=== PATIENT | female | born 1980 | race Caucasian/White ===

== ENCOUNTER 2024-07-13 10:14 | Observation (INO) | payer OTHER, SELFPAY ==
[2024-07-13] VITALS (18 sets, daily range): BP systolic 106–155; BP diastolic 41–103; PULSE 74–91; RESP 18; TEMP 36.6; BMI 30.4
--- NOTE | ~2024-07-13 | US_ITS ---
EXAMINATION: US OB limited DATE: 07/13/2024 14:26 INDICATION: Check placenta- Vaginal spotting . TECHNIQUE: Real-time ultrasound of the pelvis was performed. COMPARISON: None. FINDINGS: There is a single living fetus in breech presentation, longitudinal lie. The placenta is posterior/f undal, towards maternal right, well distant from the cervix. heart rate is 136 bpm. The amnioti c fluid index is 8.6 cm, which is low (5th to 95th percentile is 9.7 to 22.1 cm). IMPRESSION: Breech presentation. Oligohydramnios. Sonographically normal appearing placenta. Reviewed, dictated and finalized at location K.
--- NOTE | 2024-07-13 10:10 | PC.NURSE ---
Sandra in OB called and notified that patient is 7 weeks c/o lower abdominal cramping. Sandra asked patient be taken to OB. Patient transported to OB by processing technologistMadie multani.
--- NOTE | 2024-07-13 10:59 | OBADM ---
This patient, Rachael Devine, admitted to the OB room 116 for observation. Patient/family oriented to hospital policies and general routines including ID bracelet, bed and alarms, visiting hours, pain management, procedures, bathroom and other care routines, personal items, smoking policy, room service/diet, and visiting hours. Patient/Family are encouraged to report perceived risks to care and to ask questions if they do not understand what they are told or what they should do.
[2024-07-13] MEDS: LABETALOL HCL 100 MG TABLET 200 MG PO (12:16)
[2024-07-13 12:42] LABS: Add Urine Microscopic? YES; Appearance Urine Turbid (Clear); Bacteria Urine Rare /hpf; Bilirubin Urine Negative (Negative); Blood Urine 1+ (Negative); Color Urine Yellow (Yellow); Glucose Urine UA Negative (Negative); Ketones Urine Negative (Negative); Leukocyte Esterase Ur Negative LEU/UL (Negative); Nitrate Urine Negative (Negative); Non Pathogenic Casts 0-2; Protein Urine Negative (Negative); Specific Grav Ur 1.015 (1.001-1.035); Squamous Epithelial Cell Urine None Seen /hpf (Few); WBC Urine 0-5 /hpf (0-3); pH Urine 7.5 (5.0-9.0)
[2024-07-13 13:12] LABS: Influenza A QL RT-PCR Negative (Negative); Influenza B QL RT-PCR Negative (Negative); RSV RNA, RT-PCR Negative (Negative); SARS-CoV-2 RNA PCR Negative (Negative)
--- NOTE | 2024-08-06 19:54 | P.PNOB_ITS ---
OB - Triage/Final Diagnosis Visit Information Comments/Additional reasons for admission: I have assessed the risk for this patient, Rachael Devine, and determined that she would benefit from observation care. Evaluation Laboratory results: Laboratory Tests 07/13/24 12:05 Urine Color Yellow Urine Appearance Turbid H Urine pH 7.5 Ur Specific [place] 1.015 Urine Protein Negative Urine Glucose (UA) Negative Urine Ketones Negative Ur Blood (Man) 1+ H Urine Nitrate Negative Urine Bilirubin Negative Urine Urobilinogen 1.0 Leukocyte Esterase Rfl Negative Urine RBC 6-10 H Urine WBC 0-5 Ur Squamous Epith Cells None seen Urine Bacteria Rare Urine Casts 0-2 Influenza A (RT-PCR) Negative Influenza B (RT-PCR) Negative RSV (RT-PCR) Negative SARS-CoV-2 RNA (RT-PCR) Negative Final Diagnosis (1) Abdominal pain: Code(s): R10.9 - Unspecified abdominal pain Status: Acute
== END 2024-07-13 15:58 ==
PROVIDERS: Admitting Provider Obstetrics & Gynecology; Visit Provider Obstetrics & Gynecology
DX: O41.00X0 Oligohydramnios, unspecified trimester, not applicable or unspecified (principal); O26.899 Other specified pregnancy related conditions, unspecified trimester; R10.9 Unspecified abdominal pain; R11.0 Nausea; Z20.822 Contact with and (suspected) exposure to COVID-19
CPT/HCPCS: 76815; 81001; 87637; A9270; G0378; G0379

== ENCOUNTER 2024-09-05 18:43 | Emergency (ER) | payer OTHER, SELFPAY ==
[2024-09-05 18:55] VITALS: BP 150/102; PULSE 84; RESP 17; TEMP 36.2; O2SAT 100
[2024-09-05 18:58] VITALS: BP 163/102
--- NOTE | 2024-09-05 18:58 | ED.GENADULT ---
HPI - General Adult General Chief complaint: Skin/Abscess/Foreign Body Stated complaint: skin Rash Time Seen by Provider: 09/05/24 18:58 Source: patient, RN notes reviewed and old records reviewed Mode of arrival: ambulatory Limitations: no limitations History of Present Illness HPI narrative: 44-year-old female who is 33 weeks presents to the [facility] with itchy skin this been going on for several days. States that she has been taking hydroxyzine and Benadryl with no relief. Patient reports that she was evaluated last week at [facility] because she is high risk . States that nobody has called her back with her results. On initial assessment patient's blood pressure is elevated. Patient is scratching, hands are swollen, multiple scabbed over areas to the posterior legs. Patient reports 3 adult children. Denies any headaches, blurry vision, change in vision. Denies any chest pain or shortness of breath. Denies any abdominal pain. Onset (ago): day(s) Treatments prior to arrival: other (Hydroxyzine and Benadryl) Related Data Home Medications Medication Instructions Recorded Confirmed aspirin 81 mg chewable tablet 81 mg PO DAILY 09/05/24 09/05/24 buprenorphine 8 mg-naloxone 2 mg 1 film buccal DAILY 09/05/24 09/05/24 sublingual film famotidine 20 mg tablet 20 mg PO DAILY 09/05/24 09/05/24 hydroxyzine pamoate 25 mg capsule 25 mg PO DAILY 09/05/24 09/05/24 labetalol 200 mg tablet 200 mg PO DAILY 09/05/24 09/05/24 ondansetron 4 mg disintegrating 4 mg PO PRN PRN Nausea 09/05/24 09/05/24 tablet vitamin with calcium 1 tablet PO DAILY 09/05/24 09/05/24 no.72-iron 27 mg-folic acid 1 mg tablet (WesTab Plus) risperidone 1 mg tablet 1 mg PO DAILY 09/05/24 09/05/24 risperidone 2 mg tablet 2 mg PO DAILY 09/05/24 09/05/24 trazodone 50 mg tablet 50 mg PO HS 09/05/24 09/05/24 Allergies Allergy/AdvReac Type Severity Reaction Status Date / Time No Known Allergies Allergy Verified 09/05/24 18:53 Review of Systems Review of Systems: All systems reviewed & are unremarkable except as noted in HPI and below Constitutional: Constitutional: Reports no additional constitutional complaints Eyes: Eyes: Reports no additional eye complaints ENT: Reports system reviewed and no additional complaints, except as documented Cardiovascular: Cardiovascular: Reports no additional cardiovascular complaints, Denies chest pain and Denies dyspnea Respiratory: Respiratory: Reports no additional respiratory complaints, Denies chest congestion, Denies cough and Denies dyspnea Gastrointestinal: Gastrointestinal: Reports no additional gastrointestinal complaints, Denies abdominal pain, Denies nausea and Denies vomiting Musculoskeletal: Musculoskeletal: Reports no additional musculoskeletal complaints Integumentary/Breasts: Skin/Breast: Reports as per HPI and Reports pruritus Neurologic: Reports system reviewed and no additional complaints, except as documented Psychiatric: Psychiatric: Reports no additional psychiatric complaints PMFSH Comments At the time of my signature, I reviewed and agree with the nursing past medical, surgical, social, and family history. There is no relevant family history pertinent to the patient complaint. Exam Const: General: no acute distress, well developed, alert, anxious, uncomfortable and well nourished Nutritional Appearance: well nourished Orientation/consciousness: patient oriented x3 Limitations: no limitations HENMT: Head: normal to inspection Ears: hearing grossly normal bilaterally and external ears normal Face/Nose/Sinus: Normal external nose present, normal facial exam and face symmetric Face and sinus: normal facial exam and face symmetric Mouth: Yes Normal oral and palatal mucosa present and Yes lip normal Teeth and gingiva: poor dentition Eyes: General: appearance normal, both eyes and all related structures Alignment and Position: alignment normal Periorbital: giana
== END 2024-09-05 19:18 | disposition left against medical advice (07) ==
PROVIDERS: Emergency Provider Nurse Practitioner; PCP Nurse Practitioner Family
DX: O16.3 Unspecified maternal hypertension, third trimester (principal); O26.893 Other specified pregnancy related conditions, third trimester; L50.9 Urticaria, unspecified; Z79.82 Long term (current) use of aspirin; Z79.899 Other long term (current) drug therapy; Z3A.33 33 weeks gestation of pregnancy
CPT/HCPCS: 99211; G0463

== ENCOUNTER 2025-04-03 22:25 | Emergency (ER) | payer OTHER, SELFPAY ==
--- OUTSIDE RECORDS SUMMARY | 2025-04-03 22:27 | XMS_ITS | Patient Health Record ---
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 contact office with questions or concerns. 07/29/2024 Other Continue curren t medications. Continue services as scheduled. Labs completed recently. May self-administer medications or be administered own oral medications per [facility] protocols. Provided informed consent with understanding of side effects, adverse effects, risks and benefits as well as alternative treatments as previously discussed and with the above recommended medications & other aspects of the treatment program. Agrees to return sooner if symptoms worsen or suicidal or homicidal ideations occur. 09/24/2024 Other May self-administer medications or be administered own oral medications per [facility] protocols. Provided informed consent with understanding of side effects, adverse effects, risks and benefits as well as alternative treatments as previously discussed and with the above recommended medications & other aspects of the treatment program. Agrees to return sooner if symptoms worsen or suicidal or homicidal ideations occur. Plan Of Treatment Next Appt Details Provider Name:Abigail Colin ga, 04/06/2025 01:00:00 PM, [address], [place], [address], Insurance Providers Payer Name Payer Address Payer Phone Subscriber Number Group Number Insured Name Patient Relationship to Insured Coverage Start Date Coverage End Date [employer] [facility] Attn Claims Department [address] [place] [address] [id number] Rachael Devine Self - patient is the insured 4 [employer] Attn Claims Department [address] [place] [address] [id number] Rachael Devine Self - patient is the insured 4 Medical (General) History Medical History History ICD Code hypertension (resolved 10/09/2024) undefine d Surgical History Surgery Date(Month/Year) right knee detached ACL/MCL 2008 Hospitalization History Reason Date(Month/Year) kidney infection 2018 detox x2
--- OUTSIDE RECORDS SUMMARY | 2025-04-03 22:27 | XMS_ITS ---
Author Organization [facility] Address [address] [place] [address] Care Team Providers Care Research Compliance Specialist Name Role Phone Melanie Varma Primary Care Provider [phone] Abigail Castillo [phone] REASON FOR VISIT 4 week f/u Social History Sex Assigned At : Social History Observation Description Sex Assigned At Female Encounters Encounter Location Date Provider Diagnosis [address] [address] 03/25/2025 Abigail Castillo Plan Of Treatment Next Appt Details Provider Name:Abigail snyder, 04/06/2025 01:00:00 PM, [address] [place] [address], [place], [address], Progress Notes * Rachael DEVINEDOB: 0 (45 yo F)Acc No.[id number]:03/25/2025 UNLOCKED PROGRESS NOTE Patient: Rachael CHRISTOPHER Provider: Sabrina Castillo, DNP, TAG WRITER, PMHNP-BC :1980 A ge:45 Y S ex:Female Date:03/25/2025 Address:[address], [place], [id number] Pcp:Melanie Varma Subjective: * Chief Complaints: * 1 . 4 week f/u. * Medical History: Objective: * Vitals: Assessment: Plan: * Treatment: * * Electronic signature of Debbie Gunter , [id number] on 04/03/2025 at 10:27 PM CDT Sign off status: Pending * Provider: Sabrina Castillo DNP, LIU, PMHNP-BC Date: 0 03/25/2025 Generated for Printing/Faxing/eTransmitting on: 04/03/2025 10:27 PM CDT
--- OUTSIDE RECORDS SUMMARY | 2025-04-03 22:27 | XMS_ITS | Continuity of Care Document ---
Author Organization [facility] Address [address] [place] [address] Phone Care Team Providers Care Seasonal Sales Associate Name Role Phone Osei Diaz MD Unavailable Unavailable Advance Directives Directive Yes / No Effective Date File Name No Information Encounters Encounter Description Practice Location Reason(s) For Visit Diagnoses Date Provider Providers Copied on Encounter [facility], [address], [place], [place], [id number], tel:[phone] [facility] No Information Joe Franz. [address] [place] [address], [address], [place], [place], [id number], . tel:[phone] Referring Provider: Osei Diaz, [address] [place] [address], [address]. tel:[phone] Family History Family Member Type Diagnosis Age At Onset No Information Payers Payer name Insurance type Covered alliance party ID Authoriza tianupam(s) [facility] [id number] Social History Type Description Quantity Date Captured Comments Sex Female Smoking Status No Information Chief Complaint And Reason For Visit No Information Reason For Referral Reason For Referral No Information History Of Present Illness Encounter Date Complaint History Of Prese nt Illness No Information Functional Status Date Functional Assessmen t No Information Instructions Date Instruction Additional Infor mation No Information Assessments Type Assessment Date No Information Patient Care Teams Name Effective Dates (start - stop) Status Members No Information
--- OUTSIDE RECORDS SUMMARY | 2025-04-03 22:27 | XMS_ITS | Clinical Summary ---
Author Organization [facility] Address [address] [place] [address] Care Team Providers Care Digital Account Manager Name Role Phone Cris Pulido NP Primary Care Provider [phone] Allergies No known active allergies Medications ALPRAZolam (XANAX) 1 mg tablet Take 1 tablet (1 mg total) by mouth 3 (three) times a day as needed for anxiety. 30 tablet 2 01/03/2018 Active dicyclomine (BENTYL) 20 mg tabletIndicatio ns:Abdominal Pain with Cramps Take 1 tablet (20 mg total) by mouth every 6 (six) hours as needed (stomach cramps). 30 tablet 01/03/2018 Active ondansetron (ZOFRAN) 4 mg tablet Take 1 tablet (4 mg total) by mouth every 6 (six) hours as needed for nausea or vomiting (mild to moderate). 20 tablet 01/03/2018 Active penicillin v potassium (VEETID) 500 mg tablet Take 1 tablet (500 mg total) by mouth 4 (four) times a day 03/17/2024 Active Active Problems Problem Noted Date Diagnosed Date Syncope 03/20/2024 Assessment & Plan (03/20/2024 1:59 PM CDT): HPI: Condition is stable. Currently not on any hypertensive medications. Was previously on hydrochlorothiazide but states it made her have f ainting spells . Patient no longer on medication and still reports syncopal events. A&P: Discussed/ordered labs. We will continue to monitor. Will order echocardiogram to workup murmur. Will refer to Cardiology for workup for previous drug use/echo/murmur/syncopal episodes. She previously saw Dr. Alvarado but is requesting a new manager clinical informatics. Raynaud's disease without gangrene 03/20/2024 Assessment & Plan (03/20/2024 2:06 PM CDT): HPI: Condition is not at/near goal. Patient had bilateral hand and foot discoloration-red and white for many years. A&P: Discussed/ordered labs. Nonpharmacologic measures include avoidance of provoking factors such as cold temperature and vasoconstricting drugs,smoking cessation (when applicable). Avoidance of cold exposure - Avoidance of cold exposure and sudden temperature changes (when possible) is a garnica component of the management of Raynauds. Patients should be aware of circumstances that can trigger an attack such as putting one's hand in a refrigerator or freezer, holding an ice-cold drink, and entering an air conditioned environment such as the frozen food section of the supermarket or swimming in cold water, modest seasonal changes such as cool rainy days can aggravate Raynauds. It is important to understand that one must keep the whole body warm and not just the hands and feet. We therefore advise that patients with RP use strategies that not only keep the digits warm (eg, hand warmers, warm socks), but also the whole body. Strategies to maintain body warmth include dressing warmly with thermal underwear, layered clothing, and a hat when going outside and arranging to have appropriate heating in both the home and working environment. This also includes measures to avoid whole body cold exposure such as not sitting still in cold breezes from air conditioning and avoiding situations that involve rapid changes from a warm to cold ambient temperature. Keeping the digits of the hands and feet warm with winter gloves, chemical hand warmers, and heavy wool socks may also help. Heating up clothing in a dryer and putting them on while they are still warm before entering a cold environment is suggested as helpful. Methods to help terminate an attack of Raynauds. These include placing the hands under warm water or in a warm place (such as the axilla) or rotating arms in a whirling or windmill pattern. A maneuver similar to throwing a Frisbee can also be used Rubbing the hands together can also help warm the hands and restore blood flow. A typical attack lasts approximately 15 to 20 minutes after rewarming. Other general measures: Avoidance of repeated trauma to the fingertips by all patients with Raynauds and avoidance of vibrating tools by patients with vibration-induced Raynauds Control or limitation of emotional stress because the thermoregulatory vessels are constricted by increased sympathetic tone. Stress plus cold exposure is an especially potent trigger for Raynauds Avoidance of vasoconstricting drugs -- Patients should be advised to avoid medications known to worsen vasospasm, when possible. We advise that these medications be avoided. Several classes of drugs known to be associated with vasospasm include the following: ?Ltld-fkl-lcshrec nasal decongestants (eg, phenylephrine, pseudoephedrine) ?Amphetamines, diet pills, and herbs with ephedra ?Agents used to treat attention deficit hyperactivity disorder (ADHD) (methylphenidate and dextroamphetamine) ?Some medications used for migraine headaches, including serotonin agonists (eg, sumatriptan) or. ergotamine Smoking cessation -- Avoidance of smoking is advised since smokers are sensitized to the vasoconstrictive properties of cigarettes. Avoiding secondhand smoke and electronic cigarettes is also prudent. Essential hypertension 08/12/2021 Assessment & Plan (03/20/2024 1:57 PM CDT): HPI: Condition is stable. Currently not on any hypertensive medications. Was previously on hydrochlorothiazide but states it made her have f ainting spells . Patient no longer on medication and still reports syncopal events. A&P: Discussed/ordered labs. We will continue to monitor. Will order echocardiogram to workup murmur. Will refer to Cardiology for workup for previous drug use/echo/murmur/syncopal episodes. She previously saw Dr. Alvarado but is requesting a new manager clinical informatics. Tobacco dependence syndrome 08/12/2021 Assessment & Plan (03/20/2024 1:59 PM CDT): HPI: Condition is not at/near goal. Patient states she has smoking a few cigarettes daily. A&P: Discussed/ordered labs. Discussed and encouraged smoking cessation. Snoring 06/17/2021 Assessment & Plan (03/20/2024 2:00 PM CDT): HPI: Condition is unknown, no data to review at this time to make an evaluation. Patient reports she has had a previous diagnosis of sleep apnea but has never had a sleep study or used a CPAP before. Patient does state that she snores occasionally and does have daytime somnolence. A&P: Discussed/ordered labs. We will refer to pulmonology to further assess/sleep study. Anxiety 10/08/2020 Assessment & Plan (03/20/2024 2:02 PM CDT): Patient reiterated no suicidal thoughts at this time; take medication as directed; contact 911 and go to the ER if becomes suicidal; discussed side effects of medication with patient; encouraged healthy diet and exericise; encouraged patient to see a counselor. HPI: Condition is stable. Patient presents today to establish care after previous PCP left. She was seeing Luma Maria MD in [place]. She does have history of previous fentanyl use but has been clean for 6+ years. Patient does report many stressors including the of her 4 years ago and her daughter 2 years ago. Patient has been living with her mother but has not been working. Patient has papers today to apply for disability. Reviewing paper copies of her chart from previous PCP shows that she was referred to Psychiatry and Cardiology but appointments were never made. Patient reports previously being treated with alprazolam for her anxiety and states that sertraline did not work for her and made her symptoms worse. Patient also reports that she was taking Suboxone in the past but is not currently taking. She would like to find a Suboxone clinic as she states that it would make sobriety easier. A&P: Discussed/ordered labs. Discussed with [facility] [place] paperwork/initiated today. Will place referral for the medical stabilization team to make contact with patient and discuss referral to [facility] for both psychiatry and potential Suboxone management. Bipolar disorder 10/08/2020 Assessment & Plan (03/20/2024 1:55 PM CDT): HPI: Condition is stable. Patient presents today to establish care after previous PCP left. She was seeing uLma Maria MD in [place]. She does have history of previous fentanyl use but has been clean for 6+ years. Patient does report many stressors including the of her 4 years ago and her daughter 2 years ago. Patient has been living with her mother but has not been working. Patient has papers today to apply for disability. Reviewing paper copies of her chart from previous PCP shows that she was referred to Psychiatry and Cardiology but appointments were never made. Patient reports previously being treated with alprazolam for her anxiety and states that sertraline did not work for her and made her symptoms worse. Patient also reports that she was taking Suboxone in the past but is not currently taking. She would like to find a Suboxone clinic as she states that it would make sobriety easier. A&P: Discussed/ordered labs. Discussed with [employer] disability paperwork/initiated today. Will place referral for the medical stabilization team to make contact with patient and discuss referral to [facility] for both psychiatry and potential Suboxone management. Insomnia 10/08/2020 Assessment & Plan (03/20/2024 2:01 PM CDT): HPI: Condition is not at goal. Patient reports she has had a previous diagnosis of sleep apnea but has never had a sleep study or used a CPAP before. Patient does state that she snores occasionally and does have daytime somnolence. She does report mild difficulty with sleeping and states that it has always been a problem. A&P: Discussed/ordered labs. We will refer to pulmonology to further assess/sleep study. Opioid dependence with withdrawal 12/31/2017 Assessment & Plan (03/20/2024 1:55 PM CDT): HPI: Condition is stable. Patient presents today to establish care after previous PCP left. She was seeing Luma Maria MD in [place]. She does have history of previous fentanyl use but has been clean for 6+ years. Patient does report many stressors including the of her 4 years ago and her daughter 2 years ago. Patient has been living with her mother but has not been working. Patient has papers today to apply for disability. Reviewing paper copies of her chart from previous PCP shows that she was referred to Psychiatry and Cardiology but appointments were never made. Patient reports previously being treated with alprazolam for her anxiety and states that sertraline did not work for her and made her symptoms worse. Patient also reports that she was taking Suboxone in the past but is not currently taking. She would like to find a Suboxone clinic as she states that it would make sobriety easier. A&P: Discussed/ordered labs. Discussed with [employer] disability paperwork/initiated today. Will place referral for the medical stabilization team to make contact with patient and discuss referral to [facility] for both psychiatry and potential Suboxone management. Will order echocardiogram to workup murmur. Will refer to Cardiology for workup for previous drug use/echo/murmur/syncopal episodes. She previously saw Dr. Alvarado but is requesting a new manager clinical informatics. Immunizations Immunization Administration Dates Next Due Influenza, Trivalent, Preser vative Free, Intramuscular 12/02/2013 Influenza, Unspecified 07/20/2023(Deferred: Leah ent decision) Pfizer SARS-CoV-2 Monovalent Vaccination (12+ Yrs) PURPLE 06/03/2021 Pneumococcal Polysaccharide PPV23 12/02/2013 Surgical History Surgery Date Site/Laterality Comments KNEE SURGERY Right Medical History Medical History Date Comments Infectious viral hepatitis Anxiety Family History Medical History Relation Name Comments Diabetes Mother's Brother Relation Name Status Comments Mother's Brother Social History Tobacco Use Types Packs/Day Years Used Date Smoking Tobacco: Heavy Smoker Smokeless Tobacco: Never Alcohol Use Standard Drinks/Week Comments Yes 0 (1 standard drink = 0.6 oz pur e alcohol) AUDIT-C Answer Date Recorded Q1: How often do you have a drink containing alcohol? Never 03/20/2024 Q2: How many drinks containi ng alcohol do you have on a typical day when you are drinking? Patient does not drink Q3: How often do you have si x or more drinks on one occasion? Never 03/20/2024 PHQ-2 Answer Date Recorded PHQ-2 Total Score (If total score is 3 or more points, staff should administer the PHQ-9) 2 03/20/2024 Personal Safety Answer Date Recorded Getting School Help Needed Not on file 03/24 Comments Unknown Sex and Gender Information Value Date Recorded Sex Assigned at Not on file Legal Sex Female 9:02 AM CALL CENTER RECEPTIONIST Gender Identity Not on file Sexual Orientation Not on file Obstetrics History Last Filed Vital Signs Vital Sign Reading Time Taken Comments Blood Pressure 110/80 03/20/2024 10:02 AM CDT Pulse 102 03/20/2024 10:02 AM CDT Temperature 36.8 C (98.2 F) 03/20/2024 10:02 AM CDT Respiratory Rate 16 03/20/2024 10:02 AM CDT Oxygen Saturation 98% 03/20/2024 10:02 AM CDT Inhaled Oxygen Concentration - - Weight 77.1 kg (170 lb) 03/20/2024 10:02 AM CDT Height 167.6 cm (5' 5.98 ) 03/20/2024 10:02 AM C DT Body Mass Index 27.45 03/20/2024 10:02 AM CDT Plan of Treatment Health Maintenance Due Date Last Done Comments Breast Cancer Screening-Mammogram 1980 Cervical Cancer Screening 1980 Colon Cancer Screening-Colonoscopy 1980 DTaP/Tdap/Td Vaccine (1 - Tdap) 02/24/1991 Varicella Vaccines (1 of 2 - 13+ 2-dose series) 02/24/1993 Hepatitis B Screening 02/24/1998 Regular Well Visit/Exam 18-64 02/24/1998 Pneumococcal vaccine <65 (2 of 2 - PCV) 12/02/2014 12/02/2013 Covid-19 Vaccine (2 - 2023-2 5 season) 2024 06/03/2021 Depression Screening 03/20/2025 03/20/2024 Influenza Vaccine (Season Ended) 2025 12/02/19 14 Hepatitis C Screening Completed 01/11/2014 HPV Vaccines Aged Out No longer eligi ble based on patient's age to complete this topic Procedures Procedure Name Priority Date/Time Associated Diagnosis Comments HEPATITIS C ANTIBODY Routine 01/11/2014 5:55 AM CALL CENTER RECEPTIONIST from Last 3 Months or Most Recently Relevant to Health Maintenance Results * Hepatitis C antibody (01/11/2014 5:55 AM CALL CENTER RECEPTIONIST) Hep C Ab NONREACT NONREACTIVE 01/11/2014 12:08 PM CALL CENTER RECEPTIONIST [facility] HISTORICAL RESULTS Comment: Siemens ExpaniteaurXP using NATHEN (chemiluminescent immunoassay) technology. NONREACTIVE: Antibodies to Hepatitis C not detected. This does not exclude early acute Hepatitis C infection, possibility of exposure to Hepatitis C, antibodies below detection limit, or to lack of antibody reactivity to the antigen used in this assay. EQUIVOCAL: Antibodies to Hepatitis C may or may not be present. Sample to be confirmed by real-time PCR method. REACTIVE: Antibodies to Hepatitis C detected. 01/11/2014 5:55 AM CALL CENTER RECEPTIONIST 01/11/2014 6:20 AM CALL CENTER RECEPTIONIST us Harish Maxwell MD LAB MICROBIOLOGY - GENERAL O RDERABLES Final Result [facility] HISTORICAL RESULTS from Last 3 Months or Most Recently Relevant to Health Maintenance Insurance [address] [address] [facility] Advance Directives For more information, please contact: [phone] * Full Code (Latest Code Status on File) Date Activated Date Inactivated Comments 12/31/2017 10:43 AM 01/03/2018 3:14 PM Care Teams Digital Account Manager Relationship Specialty Start Date End Date Cris Pulido NP [facility] [address] [address] PCP - General Family Medicine 03/20/24
--- OUTSIDE RECORDS SUMMARY | 2025-04-03 22:27 | XMS_ITS | Referral Summary ---
Author Organization [facility] Address [address] [place] [address] Care Team Providers Care Pcu Rn Name Role Phone Cris Pulido NP Primary Care Provider [phone] Allergies No known active allergies Medications ALPRAZolam [...] Dr. Alvarado but is requesting a new news anchor. Raynaud's disease without gangrene 03/20/2024 Assessment & [...] be associated with vasospasm include the following: ?Nzss-nzr-vbrbrrc nasal decongestants (eg, phenylephrine, pseudoephedrine) ?Amphetamines, diet [...] Dr. Alvarado but is requesting a new news anchor. Tobacco dependence syndrome 08/12/2021 Assessment & Plan [...] She was seeing Luma Maria MD in [place]. She does have history of previous fentanyl [...] easier. A&P: Discussed/ordered labs. Discussed with [employer] paperwork/initiated today. Will place referral for the medical stabilization team to make contact with patient and discuss referral to [place] for both psychiatry and potential Suboxone management. Bipolar disorder 10/08/2020 Assessment & Plan (03/20/2024 1:55 PM CDT): HPI: Condition is stable. Patient presents today to establish care after previous PCP left. She was seeing Luma Maria MD in [place]. She does have history of previous fentanyl [...] contact with patient and discuss referral to [place] for both psychiatry and potential Suboxone management. [...] She was seeing Luma Maria MD in [place]. She does have history of previous fentanyl [...] contact with patient and discuss referral to [place] for both psychiatry and potential Suboxone management. Will order echocardiogram to workup murmur. Will refer to Cardiology for workup for previous drug use/echo/murmur/syncopal episodes. She previously saw Dr. Alvarado but is requesting a new news anchor. Immunizations Immunization Administration Dates Next Due Influenza, Trivalent, Preser vative Free, Intramuscular 12/02/2013 Influenza, Unspecified 07/20/2023(Deferred: Leah ent decision) Pfizer SARS-CoV-2 Monovalent Vaccination (12+ Yrs) PURPLE 06/03/2021 Pneumococcal Polysaccharide PPV23 12/02/2013 Social History Tobacco Use Types Packs/Day Years [...] on file Legal Sex Female 9:02 AM REGULATORY AFFAIRS ASSOCIATE Gender Identity Not on file Sexual Orientation Not on file Last Filed Vital Signs Vital Sign Reading [...] 03/20/2024 10:02 AM CDT Plan of Treatment Not on file Procedures Procedure Name Priority Date/Time Associated Diagnosis Comments HEPATITIS C ANTIBODY Routine 01/11/2014 5:55 AM REGULATORY AFFAIRS ASSOCIATE from Last 3 Months or Most Recently Relevant to Health Maintenance Results * Hepatitis C antibody (01/11/2014 5:55 AM REGULATORY AFFAIRS ASSOCIATE) Hep C Ab NONREACT NONREACTIVE 01/11/2014 12:08 PM REGULATORY AFFAIRS ASSOCIATE [facility] [facility] RES[place] Comment: [employer] using NATHEN (chemiluminescent immunoassay) technology. NONREACTIVE: Antibodies [...] to Hepatitis C detected. 01/11/2014 5:55 AM REGULATORY AFFAIRS ASSOCIATE 01/11/2014 6:20 AM REGULATORY AFFAIRS ASSOCIATE us Harish Maxwell MD LAB MICROBIOLOGY - GENERAL O RDERABLES Final Result [facility] [place] [facility] RESULTS from Last 3 Months or Most Recently Relevant to Health Maintenance [place] [address] [place] [address] [facility] Advance Directives For more information, please contact: [phone] * Full Code (Latest Code Status on File) Date Activated Date Inactivated Comments 12/31/2017 10:43 AM 01/03/2018 3:14 PM Care Teams Pcu Rn Relationship Specialty Start Date End Date Cris Pulido NP [address] [place] [address] PCP - General Family Medicine 03/20/24
--- NOTE | 2025-04-03 22:34 | PC.NURSE ---
Decided wait was too long after talking to other patients in [place]
--- OUTSIDE RECORDS SUMMARY | 2025-04-03 22:43 | XMS_ITS | Continuity of Care Document ---
Author Organization [facility] Address [address] [place] [address] Phone Care Team Providers Care Knitter Helper Name Role Phone Osei Diaz MD Unavailable Unavailable Advance Directives Directive Yes / No Effective Date File Name No Information Encounters Encounter Description Practice Location Reason(s) For Visit Diagnoses Date Provider Providers Copied on Encounter [facility], [address], [place], [place], [id number], tel:[phone] [facility] No Information Joe Franz. [address] [place] [address], [address], [place], [place], [id number], . tel:[phone] Referring Provider: Osei Diaz, [address] [place] [address], [id number]. tel:[phone] Family History Family Member Type Diagnosis Age At Onset No Information Payers Payer name Insurance type Covered green party ID Authoriza tianupam(s) [facility] [id number] Social History Type Description Quantity Date Captured [...]
== END 2025-04-03 23:35 | disposition left against medical advice (07) ==
PROVIDERS: PCP Nurse Practitioner Family
DX: Z53.21 Procedure and treatment not carried out due to patient leaving prior to being seen by health care provider (principal)
CPT/HCPCS: 99199